=== PATIENT | female | born 1995 | race Caucasian/White ===

== ENCOUNTER 2019-09-17 17:29 | Emergency (ER) | payer BC, OTHER ==
[~2019-09-17] VITALS: Ht 162.6 cm; Wt 68.0 kg
[2019-09-17 17:31] VITALS: BP 135/88
[2019-09-17] MEDS ORDERED: APRI1 EACH PO (17:50)
[2019-09-17] MEDS ORDERED: SPIRONOLACTONE100 M1 PO (17:50)
[2019-09-17] MEDS ORDERED: PROBIOTIC1 EAC7 PO (17:51)
[2019-09-17] MEDS ORDERED: VITAMIN D3 COM1 EACH PO (17:52)
[2019-09-17] MEDS ORDERED: VITAMIN C500 M1 PO (17:52)
[2019-09-17] MEDS ORDERED: ZYRTEC10 M2 PO (17:53)
== END 2019-09-17 18:40 | disposition home or self-care (01) ==
LOC: ER 17:29
DX: S61.211A Laceration without foreign body of left index finger without damage to nail, initial encounter (principal); Z79.899 Other long term (current) drug therapy; Z88.1 Allergy status to other antibiotic agents; W26.0XXA Contact with knife, initial encounter; Y93.89 Activity, other specified; Y92.89 Other specified places as the place of occurrence of the external cause; Y99.8 Other external cause status

== ENCOUNTER 2019-10-23 14:04 | Emergency (ER) | payer BC, OTHER ==
[~2019-10-23] VITALS: Ht 162.6 cm; Wt 68.0 kg
[~2019-10-23 14:04] MED LIST: APRI1 EACH PO; PROBIOTIC1 EAC7 PO; SPIRONOLACTONE100 M1 PO; VITAMIN C500 M1 PO; VITAMIN D3 COM1 EACH PO; ZYRTEC10 M2 PO
[2019-10-23] MEDS ORDERED: MACROBID 100 M100 MG PO (14:15)
[2019-10-23 14:37] LABS: URINE BILIRUBIN NEGATIVE (Negative); URINE BLOOD 3+ (Negative); URINE CLARITY CLEAR; URINE COLOR YELLOW; URINE GLUCOSE-RANDOM* NEGATIVE (Negative); URINE KETONES NEGATIVE (Negative); URINE NITRITE-REFLEX NEGATIVE (Negative); URINE PROTEIN (DIPSTICK) TRACE (Negative); URINE UROBILINOGEN 0.2 E.U./dl (0.2-1.0)
[2019-10-23 14:53] LABS: URINE LEUKOCYTES-REFLEX 1+ (Negative)
[2019-10-23 15:00] LABS: CASTS None Seen /LPF (None Seen); SQUAMOUS 0-3 Few /LPF (0-3); URINE RBC 3-10 Few /HPF (0-2)
[2019-10-23 15:01] LABS: BACTERIA-REFLEX 1-9 Few /HPF (None Seen); CRYSTALS None Seen /LPF (None Seen); URINE WBC-REFLEX 0-5 Rare /HPF (0-5)
[2019-10-23 15:55] VITALS: BP 115/73
[2019-10-23] MEDS ORDERED: NAPROSYN500 MG PO (15:55)
[2019-10-23] MEDS ORDERED: ONDANSETRON HCL4 M2 PO (15:55)
== END 2019-10-23 16:05 | disposition home or self-care (01) ==
LOC: ER 14:04
PROVIDERS: Physician Assistant
DX: N39.0 Urinary tract infection, site not specified (principal); Z79.899 Other long term (current) drug therapy; Z79.2 Long term (current) use of antibiotics; Z88.1 Allergy status to other antibiotic agents